=== PATIENT | male | born 1995 | race Caucasian/White ===

== ENCOUNTER → 2020-07-09 | Outpatient (CLI) | payer MEDICAID ==
--- NOTE | 2020-07-09 14:48 | Diagnostic Imaging Report ---
INDICATION: Back pain. History of scoliosis. COMPARISON: None. FINDINGS: Evaluation of th static alignment shows moderate dextroscoliotic deformity of the midthoracic spine. AP static alignment is maintained. There is no significant samina or retrolisthesis. There is no evidence of jumped facets. Vertebral body heights are maintained. There is no acute fracture. Marrow signal is normal throughout. Note is made of mild multilevel intervertebral disc height loss. Thoracic cord is normal in course and signal. There is no evidence of cord edema. No abnormal intrathecal filling defects are seen. Pre and paravertebral soft tissue structures are unremarkable. Axial images show no significant spinal canal or neuroforaminal stenosis. IMPRESSION: 1. Moderate dextroscoliotic deformity of the thoracic spine, but no acute abnormalities. Dictated by: Dictated on workstation # [id number]
== END ==
LOC: RAD 13:15
PROVIDERS: ATTEND Nurse Practitioner Community Health
DX: M41.84 Other forms of scoliosis, thoracic region (principal); M54.14 Radiculopathy, thoracic region
CPT/HCPCS: 72146

== ENCOUNTER → 2020-08-02 | Outpatient (CLI) | payer MEDICAID ==
[~2020-08-02] MED LIST: RT-ALBUTEROL SULF 2.5 MG/3 ML PRE-MIX VIAL INH ONE
== END ==
LOC: RT 07:58
PROVIDERS: ATTEND Nurse Practitioner Family
DX: J45.40 Moderate persistent asthma, uncomplicated (principal); M41.114 Juvenile idiopathic scoliosis, thoracic region
CPT/HCPCS: 94060; 94726; 94729

== ENCOUNTER → 2020-11-08 | Outpatient (CLI) | payer MEDICAID | LOC: CARD 08:30 | PROVIDERS: ATTEND Internal Medicine Cardiovascular Disease | DX: Z86.79 Personal history of other diseases of the circulatory system (principal) | CPT/HCPCS: 93306 ==